=== PATIENT | male | born 1940 | race Caucasian/White ===

== ENCOUNTER 2019-08-15 | Emergency (ER) | payer MEDICARE, OTHER ==
[~2019-08-15] MED LIST: EQ ASA CHLD81 MG OR; LIPITOR10 MG PO; NORVASC2.5 MG PO; ONE DAILY FOR MEN 50 PO; PLETAL50 MG OR
[2019-08-15] MEDS ORDERED: LASIX 40 MG TAB40 MG PO (10:58)
[2019-08-15] MEDS ORDERED: LEVOTHYROXIN50 MC1 PO (10:59)
== END 2019-08-15 12:18 | disposition home or self-care (01) ==
DX: M79.605 Pain in left leg (principal); W11.XXXA Fall on and from ladder, initial encounter; Y92.009 Unspecified place in unspecified non-institutional (private) residence as the place of occurrence of the external cause

== ENCOUNTER 2021-06-28 07:40 | Emergency (ER) | payer MEDICARE, OTHER ==
[~2021-06-28] VITALS: Ht 180.3 cm; Wt 100.0 kg
[~2021-06-28 07:40] MED LIST changes: +LASIX 40 MG TAB40 MG PO; +LEVOTHYROXIN50 MC1 PO
[2021-06-28] MEDS ORDERED: NITROFURANTN100 M2 PO (08:44)
[2021-06-28 10:58] LABS: HEMATOCRIT 44.8 % (39.0-50.0); HEMOGLOBIN 15.1 g/dl (14.0-18.0); IMMATURE GRANULOCYTES 0.2 % (0.0-5.0); MEAN CELL VOLUME 90.7 fL CALC (80.0-100.0); MEAN CORPUSCULAR HGB 30.6 pG CALC (26.0-32.0); MEAN CORPUSCULAR HGB CONC 33.7 g/dL CAL (32.0-36.0); NEUT# 5.55 thou/uL (1.82-7.42); RED BLOOD COUNT 4.94 mill/uL (4.70-6.10); RED CELL DISTRI WIDTH 12.7 % (11.5-15.5)
[2021-06-28 11:23] LABS: CREATININE 1.4 mg/dL (0.7-1.3)
[2021-06-28 11:27] LABS: POTASSIUM 3.8 mmol/l (3.5-5.1)
[2021-06-28 11:56] VITALS: BP 122/67
== END 2021-06-28 11:57 | disposition home or self-care (01) ==
LOC: ED 07:40
PROVIDERS: Family Medicine
PROC: 0T2BX0Z Change Drainage Device in Bladder, External Approach (ICD-10-PCS; principal; 2021-06-28)
DX: T83.091A Other mechanical complication of indwelling urethral catheter, initial encounter (principal); N40.1 Benign prostatic hyperplasia with lower urinary tract symptoms; E78.5 Hyperlipidemia, unspecified; E03.9 Hypothyroidism, unspecified; Y84.6 Urinary catheterization as the cause of abnormal reaction of the patient, or of later complication, without mention of misadventure at the time of the procedure